=== PATIENT | female | born 1990 | race Caucasian/White ===

== ENCOUNTER 2020-12-09 17:45 | Emergency (ER) | payer OTHER ==
[~2020-12-09] VITALS: Ht 170.2 cm; Wt 75.0 kg
[2020-12-09 17:56] VITALS: BP 142/82
[2020-12-09] MEDS ORDERED: HYDROcodone/APAP 5/325MG 1 TAB TABLET PO ONE (18:30)
[2020-12-09] MEDS ORDERED: IBUPROFEN 600 MG TABLET. PO ONE (18:30)
[2020-12-09] MEDS ORDERED: HYDR-2155 PO (18:32)
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
== END 2020-12-09 18:55 | disposition home or self-care (01) ==
LOC: ER 17:45
DX: M54.2 Cervicalgia (principal); V98.8XXA Other specified transport accidents, initial encounter; Y93.89 Activity, other specified; Y92.89 Other specified places as the place of occurrence of the external cause; Y99.8 Other external cause status
CPT/HCPCS: 99283

== ENCOUNTER 2020-12-15 10:33 | Emergency (ER) | payer OTHER ==
[~2020-12-15] VITALS: Ht 170.2 cm; Wt 77.0 kg
[~2020-12-15 10:33] MED LIST: HYDR-2155 PO
[2020-12-15 10:48] VITALS: BP 137/73
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
== END 2020-12-15 11:02 | disposition home or self-care (01) ==
LOC: ER 10:33
DX: G89.29 Other chronic pain (principal); Z98.51 Tubal ligation status
CPT/HCPCS: 99281; 99282